=== PATIENT | female | born 1955 | race Asian ===

== ENCOUNTER → 2016-05-09 | Day surgery (SDC) | payer BC ==
[~2016-05-09] MED LIST: ASPI81TA50 PO; CALC500T50 PO; CHOL100013 PO; FENTANYL PF 100 MCG/2 ML VIAL. IV PRN; HYDR25TA9 PO; HYDROMORPHONE 2 MG/ML VIAL. IV PRN; IV RINGERS,LACTATED 1000ML 1,000 ML IV SCH; LIDOCAINE 1% 1 ML SYRINGE. ID PRN; MORPHINE SULFATE 2 MG/ML DISP.SYRIN. IV PRN; MULT-208 PO; OMEP20TA PO; ONDANSETRON PF 4 MG/2 ML VIAL. IV PRN; PROCHLORPERAZINE 10 MG/2 ML VIAL. IV PRN; PROPOFOL 40 ML IV ONE; SALI10002 MM
--- NOTE | 2016-05-09 10:20 | PDOC1 ---
HISTORY & PHYSICAL H&P Elizabeth Silva [id number] 1955 12/04/2015 01:10 PM 03/13 [place] [employer] [facility], [facility] [address] [place] [address]. [phone] Patient: Elizabeth Silva Date of : 1955 Date: 12/04/2015 1:10 PM Visit Type: Consult This 60 year old female presents for Screening colonoscopy. History of Present Illness: 1. Screening colonoscopy Prior screening: colonoscopy. Denies risk factors. Pertinent negatives include abdominal pain, change in bowel habits, change in stool caliber, constipation, decreased appetite, diarrhea, melena, nausea, rectal bleeding, vomiting, weight gain and weight loss. Additional information: No family history of colon cancer, No family history of Crohn's/colitis, No NSAID/ASA use and had last colonoscopy in 2003. INTAKE COMMENTS: Intake Comments: Nurse Note: the pt is here today to schedule a screening colonoscopy, the pt states that her last one was in 2003. PROBLEM LIST: Problem Description Onset Date Chronic Notes Routine medical exam 12/04/2015 Varicose veins of lower extremity 07/04/2013 Y Mapped from [facility] Chronic Conditions table on 09/30/2013 by the ICD9 to SNOMED Bulk Mapping Utility. The mapped diagnosis code was Varicose Veins, Lower Extremity, 454.9, added by Reena Walsh, with responsible provider Reena Walsh MD. Onset date 07/04/2013 ; last addressed on 08/22/2013. Encounter for screening colonoscopy 12/04/2015 Acute bronchitis, unspecified organism 08/14/2015 Hyperlipidemia 03/27/2009 Y Mapped from [facility] Chronic Conditions table on 2013 by the ICD9 to SNOMED Bulk Mapping Utility. The mapped diagnosis code was Hyperlipidemia NEC/NOS, 272.4, added by Reena Walsh, with responsible provider Reena Walsh. Onset date 03/27/2009; last addressed on 07/04/2013. Allergic rhinitis 01/17/2013 Y Mapped from [facility] Chronic Conditions table on 09/30 by the ICD9 to SNOMED Bulk Mapping Utility. The mapped diagnosis code was Allergic rhinitis, cause unspecified, 477.9, added by Reena Walsh, with responsible provider Reena Walsh MD. Onset date 01/17/2013; last addressed on 08/22/2013. Sleep apnea 03/14/2013 Y Mapped from [facility] Chronic Conditions table on 09/30/2013 by the ICD9 to SNOMED Bulk Mapping Utility. The mapped diagnosis code was Sleep apnea, 780.57, added by Reena Walsh, with responsible provider Reena Walsh MD. Onset date 03/14/2013; last addressed on 08/22/2013. PAST MEDICAL/SURGICAL HISTORY (Detailed) Disease/disorder Onset Date Management Date Comments section 1988 Tonsillectomy Allergic rhinitis Allergic rhinitis Allergies GERD Hyperlipidemia Thyroid disease varicose veins bilateral varicose vein repair 07/2013 OBSTETRIC HISTORY: Not currently . Medications (Active): Started Medication Directions Instruction Stopped Aspir-81 81 mg tablet,delayed release take 1 tablet (81MG) by oral route every day 08/02/2012 calcium 500 mg tablet take 1 tab daily 06/03/2015 Flonase 50 mcg/actuation nasal spray,suspension SPRAY 2 SPRAY BY INTRANASAL ROUTE EVERY DAY IN EACH NOSTRIL 12/29/2014 hydrochlorothiazide 25 mg tablet TAKE 1 TABLET BY ORAL ROUTE EVERY DAY This is the correct script and quantity is 90 days. 08/02/2012 multivitamin capsule take 1 capsule by oral route every day 05/04/2015 omeprazole 20 mg capsule,delayed release TAKE 1 CAPSULE BY ORAL ROUTE 2 TIMES EVERY DAY BEFORE A MEAL 08/14/2015 potassium chloride ER 10 mEq capsule,extended release TAKE 1 CAPSULE BY ORAL ROUTE EVERY DAY WITH FOOD 08/14/2015 Singulair 10 mg tablet TAKE 1 TABLET BY ORAL ROUTE EVERY DAY IN THE EVENING VITAMIN D3 take 1 tablet once per day. 06/03/2015 Zyrtec 10 mg tablet take 1 tablet (10MG) by ORAL route every day at bedtime Allergies: Ingredient Reaction Medication Name Comment CODEINE REVIEW OF SYSTEMS System Neg/Pos Details Constitutional Negative Chills, fever, malaise, weight gain and weight loss. ENMT Negative Sore throat. Eyes Negative Double vision. Respiratory Negative Dyspnea and wheezing. Cardio Negative Chest pain and irregular heartbeat/palpitations. GI Positive See HPI. GI Negative Abdominal pain, change in bowel habits, change in stool caliber, constipation, decreased appetite, diarrhea, melena, nausea, see HPI, rectal bleeding and vomiting. Negative Dysuria and hematuria. Endocrine Negative Cold intolerance and heat intolerance. Psych Negative Anxiety. Integumentary Negative Hives and rash. MS Negative Joint pain. Srikanth/Lymph Negative Easy bleeding and easy bruising. Allergic/Immuno Negative Food allergies. VITAL SIGNS Time BP mm/Hg Pulse /min Resp /min Temp F Ht ft Ht in Ht cm Wt lb Wt kg BMI kg/ m2 BSA m2 O2 Sat% 1:03 PM 132/70 69 97.7 4.0 9.00 144.78 137.80 62.505 29.82 99 MEASURED BY Time Measured by 1:03 PM Garima Doyle PHYSICAL EXAM: Exam Findings Details Constitutional Normal Well developed. Eyes Normal Conjunctiva - Right: Normal, Left: Normal. Sclera - Right: Normal, Left: Normal. Nasopharynx Normal Lips/teeth/gums - Normal. Neck Exam Normal Inspection - Normal. Thyroid gland - Normal. Respiratory Normal Inspection - Normal. Auscultation - Normal. Cardiovascular Normal Regular rate and rhythm. No murmurs, gallops, or rubs. Vascular Normal Pulses - Carotids: Normal, Femoral: Normal, Dorsalis pedis: Normal. Abdomen Normal Inspection - Normal. Anterior palpation - No guarding. No abdominal tenderness. No hepatic enlargement. No splenic enlargement. No hernia. No Ascites. Skin Normal Inspection - Normal. Extremity Normal No edema. Psychiatric Normal Oriented to time, place, person, and situation. Appropriate mood and effect. Assessment/Plan # Detail Type Description 1. Assessment Encounter for screening colonoscopy (Z12.11). Patient Plan schedule colonoscopy at Plan Orders Further diagnostic evaluations ordered today include(s) Colonoscopy to be performed today. She is to schedule a follow-up visit with Janet Walsh MD upon completion of work-up Electronically signed by: Janet Walsh MD 12/04/2015 01:35 PM Document generated by: Janet Walsh 12/04/2015 01:35 PM True Canales MD, Family Practice; Solo Honeycutt MD Internal Medicine; Buddy Rodriguez MD, Internal Medicine; Reena Walsh MD Internal Medicine; Janet Walsh MD, Gastroenterology; Salvador Amos MD, Rheumatology, S. Manuel Kessler, Physical Medicine/Rehab Karli Oneill APRN ------ 05/09/16 Patient seen and examined. No change in H&P. JANET WALSH MD May 09, 2016 10:20
--- NOTE | 2016-05-09 10:51 | PDOC4 ---
GI OP Report - Dr. Corona Date/Time DATE: 05/09/16 TIME: 10:50 Attending Physician Fazal Corona MD Referring Physician Indications Screening for colorectal malignant neoplasm Pre-Op See the Anesthesia note for documentation of the administered medications Procedures Colonoscopy Findings - The entire examined colon is normal on direct and retroflexion views. - No specimens collected Plan - Discharge patient to home. - Patient has a contact number available for emergencies. The signs and symptoms of potential delayed complications were discussed with the patient. Return to normal activities tomorrow. Written discharge instructions were provided to the patient. - Resume regular diet. - Continue present medications. - Repeat colonoscopy in 10 years for surveillance. - Return to my office as needed. FAZAL CORONA MD May 09, 2016 10:51
[2016-05-09 11:18] VITALS: BP 160/85
== END | disposition home or self-care (01) ==
LOC: ENDOS 09:01
PROVIDERS: ATTEND Internal Medicine Gastroenterology
DX: Z12.11 Encounter for screening for malignant neoplasm of colon (principal); I10 Essential (primary) hypertension; K21.9 Gastro-esophageal reflux disease without esophagitis
CPT/HCPCS: 45378; J2704